=== PATIENT | male | born 1990 | race Caucasian/White ===

== ENCOUNTER 2019-09-13 14:03 | Observation (INO) ==
[2019-09-13] MEDS ORDERED: Isovue-370 500 ML BOTTLE IVP ONE (14:21)
[2019-09-13] MEDS ORDERED: 0.9 % Sodium Chloride 1,000 ML IVC STA (14:33)
[2019-09-13] MEDS ORDERED: Prochlorperazine 10 MG/2 ML VIAL IVP ONE (14:34)
[2019-09-13 14:54] LABS: Basophils # 0.1 K/mcL (0.0-0.2); Basophils % 1.1 %; Eosinophils # 0.1 K/mcL (0.0-0.6); Hematocrit 46.8 % (37.5-50.1); Immature Granulocytes % 0.3 % (0-4); Lymphocytes # 1.2 K/mcL (0.6-4.6); Lymphocytes % 16.8 %; Mean Corpuscular HGB Conc 34.2 g/dL (31.6-35.5); Mean Corpuscular Hemoglobin 27.6 pg (28.0-33.3); Mean Corpuscular Volume 80.7 fL (83.0-100.0); Mean Platelet Volume 10.9 fL (9.4-12.4); Monocytes # 0.6 K/mcL (0.0-1.3); Monocytes % 8.9 %; Platelet Count 264 K/mcL (140-400); Red Cell Distribution Width 12.8 % (11.5-14.5); Segmented Neutrophils % 70.9 %; White Blood Count 7.1 K/mcL (4.3-11.1)
[2019-09-13 14:56] LABS: Prothrombin Time 11.6 Seconds (9.4-12.1)
[2019-09-13 15:13] LABS: Alanine Aminotransferase 32 Units/L (7-52); Albumin 4.7 g/dL (3.5-5.7); Albumin/Globulin Ratio 1.6 (1.1-2.2); Alkaline Phosphatase 85 Units/L (34-104); Aspartate Amino Transferase 22 Units/L (13-39); BUN/Creatinine Ratio 15 (6-26); Bilirubin,Direct 0.2 mg/dL (0.0-0.2); Bilirubin,Indirect 0.6 mg/dL (0.0-1.0); Bilirubin,Total 0.8 mg/dL (0.3-1.0); Blood Urea Nitrogen 12 mg/dL (6-20); Calcium 9.9 mg/dL (8.6-10.3); Carbon Dioxide 23 mEq/L (23-29); Chloride 104 mEq/L (98-107); Globulin 2.9 g/dL (2.4-3.5); Glucose 105 mg/dL (70-105); Osmolality,Calculated 288 (280-300); Potassium 3.3 mEq/L (3.5-5.1); Sodium 139 mEq/L (136-145); Total Protein 7.6 g/dL (6.4-8.9); Troponin I < 0.03 ng/mL (< 0.04); eGFR For African Americans > 60 (> 60); eGFR For Non-African Americans > 60 (> 60)
[2019-09-13] MEDS ORDERED: *HR* FentaNYL (PF) 100 MCG/2 ML VIAL IVP ONE (16:56)
[2019-09-13] MEDS: niCARdipine 20 MG in 0.9 % Sodium Chloride 192 ML IVC SCH ×3 (17:28→22:44)
[2019-09-13 17:31] LABS: Bilirubin,Urine Negative (Negative); Blood,Urine Negative (Negative); Clarity,Urine Cloudy (Clear); Color,Urine Yellow (Yellow); Glucose,Urine (UA) Normal (Normal); Ketones,Urine Negative (Negative); Leukocyte Esterase,Urine Negative (Negative); Nitrite,Urine Negative (Negative); PH,Urine 7.5 pH Units (5.0-8.0); Protein,Urine Negative (Neg-Trace); Specific Gravity,Urine 1.023 (1.010-1.025); Urobilinogen,Urine Normal (Normal)
[2019-09-13 17:39] LABS: Bacteria,Urine None Seen per hpf (None-Few); Hyaline Casts,Urine None Seen per lpf (None-Few); RBC,Urine 0-3 per hpf (0-3); Squamous Epithelial Cell,Urine None Seen per lpf (None-Few); WBC,Urine 0-3 per hpf (0-3)
[2019-09-13] MEDS ORDERED: Naloxone 0.4 MG/ML INJ IVP PRN (17:43)
[2019-09-13] MEDS ORDERED: *HR* Labetalol 20 MG/4 ML SYRINGE IVP PRN (18:03)
[2019-09-13] MEDS ORDERED: Ondansetron 4 MG/2 ML VIAL IVP PRN (18:12)
[2019-09-13] MEDS ORDERED: *HR* OxyCODONE Immed Rel 5 MG TABLET PO ONE (22:39)
[2019-09-14] MEDS ORDERED: *HR* Promethazine 25 MG/ML VIAL IVP ONE (00:54)
[2019-09-14] MEDS ORDERED: *HR* HYDROmorphone 2 MG TABLET PO ONE (01:17)
[2019-09-14 01:24] LABS: BUN/Creatinine Ratio 15 (6-26); Blood Urea Nitrogen 10 mg/dL (6-20); Calcium 9.5 mg/dL (8.6-10.3); Carbon Dioxide 20 mEq/L (23-29); Chloride 105 mEq/L (98-107); Glucose 120 mg/dL (70-105); Osmolality,Calculated 284 (280-300); Potassium 3.5 mEq/L (3.5-5.1); Sodium 137 mEq/L (136-145); eGFR For African Americans > 60 (> 60); eGFR For Non-African Americans > 60 (> 60)
[2019-09-14 01:27] LABS: Troponin I 0.04 ng/mL (< 0.04)
[2019-09-14 01:39] LABS: Thyroid Stimulating Hormone 2.423 mcIU/mL (0.340-5.600)
[2019-09-14] MEDS: amLODIPine 5 MG TABLET PO SCH (07:55)
[2019-09-14] MEDS ORDERED: hydrALAZINE 25 MG TABLET PO SCH (09:00)
[2019-09-14] MEDS: niCARdipine 20 MG in 0.9 % Sodium Chloride 192 ML IVC SCH ×4 (10:35→22:28)
[2019-09-14] MEDS: Acetaminophen 325 MG TABLET PO PRN ×3 (12:13→22:42)
[2019-09-14] MEDS: hydroCHLOROthiazide 25 MG TABLET PO SCH (15:30)
[2019-09-14] MEDS: hydrALAZINE 25 MG TABLET PO SCH ×2 (15:30→23:09)
[2019-09-15] MEDS: niCARdipine 20 MG in 0.9 % Sodium Chloride 192 ML IVC SCH ×2 (00:03→01:57)
[2019-09-15 02:14] LABS: BUN/Creatinine Ratio 16 (6-26); Blood Urea Nitrogen 12 mg/dL (6-20); Calcium 9.3 mg/dL (8.6-10.3); Carbon Dioxide 22 mEq/L (23-29); Chloride 102 mEq/L (98-107); Glucose 124 mg/dL (70-105); Osmolality,Calculated 281 (280-300); Potassium 3.2 mEq/L (3.5-5.1); Sodium 135 mEq/L (136-145); eGFR For African Americans > 60 (> 60); eGFR For Non-African Americans > 60 (> 60)
[2019-09-15] MEDS: Acetaminophen 325 MG TABLET PO PRN (04:16)
[2019-09-15] MEDS: amLODIPine 5 MG TABLET PO SCH (07:28)
[2019-09-15] MEDS: hydroCHLOROthiazide 25 MG TABLET PO SCH (07:29)
[2019-09-15] MEDS: hydrALAZINE 25 MG TABLET PO SCH (07:29)
[2019-09-15] MEDS ORDERED: hydroCHLOROthiazide 25 MG TABLET PO ONE (07:53)
[2019-09-15] MEDS ORDERED: hydroCHLOROthiazide 25 MG TABLET PO SCH (09:00)
[2019-09-15 10:31] VITALS: BP 155/103
== END 2019-09-15 11:40 | disposition home or self-care (01) ==
LOC: EMEROOARM 14:03 → 3NENU 14:03 → SUATTDRO 17:45 → 3NENU 18:07
PROVIDERS: ADMIT Internal Medicine; ATTEND Family Medicine

== ENCOUNTER 2020-09-14 15:37 | Observation (INO) ==
[2020-09-14] MEDS ORDERED: Isovue-370 500 ML BOTTLE IVP ONE (16:44)
[2020-09-14] MEDS ORDERED: hydrALAZINE 25 MG TABLET PO ONE (16:49)
[2020-09-14] MEDS ORDERED: *HR* Labetalol 20 MG/4 ML SYRINGE IVP ONE (16:49)
[2020-09-14] MEDS ORDERED: hydroCHLOROthiazide 25 MG TABLET PO ONE (16:50)
[2020-09-14] MEDS ORDERED: amLODIPine 5 MG TABLET PO ONE (16:50)
[2020-09-14 17:49] LABS: Basophils # 0.1 K/mcL (0.0-0.2); Basophils % 1.4 %; Eosinophils # 0.1 K/mcL (0.0-0.6); Eosinophils % 1.3 %; Hematocrit 47.6 % (37.5-50.1); Immature Granulocytes % 0.5 % (0-4); Lymphocytes # 1.4 K/mcL (0.6-4.6); Lymphocytes % 16.8 %; Mean Corpuscular HGB Conc 33.6 g/dL (31.6-35.5); Mean Corpuscular Hemoglobin 27.9 pg (28.0-33.3); Mean Corpuscular Volume 83.1 fL (83.0-100.0); Mean Platelet Volume 10.9 fL (9.4-12.4); Monocytes # 0.7 K/mcL (0.0-1.3); Monocytes % 8.5 %; Platelet Count 280 K/mcL (140-400); Red Blood Count 5.73 M/mcL (4.19-5.50); Red Cell Distribution Width 13.2 % (11.5-14.5); Segmented Neutrophils % 71.5 %; White Blood Count 8.3 K/mcL (4.3-11.1)
[2020-09-14 17:58] LABS: Prothrombin Time 12.1 Seconds (9.4-12.1)
[2020-09-14 18:19] LABS: Alanine Aminotransferase 39 Units/L (7-52); Albumin 4.8 g/dL (3.5-5.7); Albumin/Globulin Ratio 1.5 (1.1-2.2); Alkaline Phosphatase 77 Units/L (34-104); Aspartate Amino Transferase 24 Units/L (13-39); BUN/Creatinine Ratio 15 (6-26); Bilirubin,Direct 0.1 mg/dL (0.0-0.2); Bilirubin,Indirect 0.5 mg/dL (0.0-1.0); Bilirubin,Total 0.6 mg/dL (0.3-1.0); Blood Urea Nitrogen 12 mg/dL (6-20); Calcium 9.7 mg/dL (8.6-10.3); Carbon Dioxide 23 mEq/L (23-29); Chloride 105 mEq/L (98-107); Globulin 3.1 g/dL (2.4-3.5); Glucose 110 mg/dL (70-105); Osmolality,Calculated 288 (280-300); Potassium 3.6 mEq/L (3.5-5.1); Sodium 139 mEq/L (136-145); Total Protein 7.9 g/dL (6.4-8.9); eGFR For African Americans > 60 (> 60); eGFR For Non-African Americans > 60 (> 60)
[2020-09-14] MEDS: niCARdipine 20 MG/200 ML MLS IVC SCH ×2 (19:24→23:58)
[2020-09-14] MEDS ORDERED: Ondansetron 4 MG/2 ML VIAL IVP PRN (19:55)
[2020-09-14] MEDS ORDERED: Naloxone 0.4 MG/ML INJ IVP PRN (19:55)
[2020-09-14] MEDS ORDERED: Perflutren Lipid Microsphere 1.3 ML in 0.9 % Sodium Chloride 8.7 ML IVP PRN (20:51)
[2020-09-14 21:48] LABS: Bilirubin,Urine Negative (Negative); Blood,Urine Negative (Negative); Clarity,Urine Clear (Clear); Color,Urine Colorless (Yellow); Glucose,Urine (UA) Normal (Normal); Ketones,Urine Negative (Negative); Leukocyte Esterase,Urine Negative (Negative); Nitrite,Urine Negative (Negative); Protein,Urine Trace mg/dL (Neg-Trace); Specific Gravity,Urine 1.029 (1.010-1.025); Urobilinogen,Urine Normal (Normal)
[2020-09-14 21:58] LABS: Amphetamine Screen,Urine Negative ng/mL (Cutoff=1000); Barbiturate Screen,Urine Negative ng/mL (Cutoff=200); Benzodiazepines Screen,Urine Negative ng/mL (Cutoff=200); Cannabinoid Screen,Urine Negative ng/mL (Cutoff = 50); Cocaine Screen,Urine Negative ng/mL (Cutoff= 300); Opiate Screen,Urine Negative ng/mL (Cutoff=300); Phencyclidine Screen,Urine Negative ng/mL (Cutoff=25)
[2020-09-14] MEDS ORDERED: niCARdipine 20 MG/200 ML MLS IVC ONE (22:05)
[2020-09-14] MEDS: Acetaminophen 325 MG TABLET PO PRN (22:26)
[2020-09-15 01:51] LABS: Basophils # 0.1 K/mcL (0.0-0.2); Basophils % 0.9 %; Eosinophils # 0.1 K/mcL (0.0-0.6); Eosinophils % 0.6 %; Hematocrit 46.6 % (37.5-50.1); Hemoglobin 15.4 g/dL (12.9-16.9); Immature Granulocytes % 0.5 % (0-4); Lymphocytes # 1.8 K/mcL (0.6-4.6); Lymphocytes % 14.3 %; Mean Corpuscular Hemoglobin 27.1 pg (28.0-33.3); Mean Platelet Volume 10.8 fL (9.4-12.4); Monocytes % 7.6 %; Neutrophils # 9.7 K/mcL (1.6-8.9); Platelet Count 323 K/mcL (140-400); Red Blood Count 5.68 M/mcL (4.19-5.50); Red Cell Distribution Width 13.2 % (11.5-14.5); Segmented Neutrophils % 76.1 %
[2020-09-15 01:55] LABS: INR 1.1
[2020-09-15] MEDS: niCARdipine 20 MG/200 ML MLS IVC SCH ×2 (01:55→04:45)
[2020-09-15 01:56] LABS: Estimated Average Glucose 117 mg/dl; Hemoglobin A1C 5.7 %
[2020-09-15 02:04] LABS: White Blood Count 12.8 K/mcL (4.3-11.1)
[2020-09-15 02:15] LABS: BUN/Creatinine Ratio 16 (6-26); Blood Urea Nitrogen 12 mg/dL (6-20); Calcium 9.5 mg/dL (8.6-10.3); Carbon Dioxide 23 mEq/L (23-29); Chloride 101 mEq/L (98-107); Glucose 125 mg/dL (70-105); Magnesium 2.1 mg/dL (1.6-2.6); Osmolality,Calculated 281 (280-300); Phosphorous 2.7 mg/dL (2.7-4.5); Potassium 3.3 mEq/L (3.5-5.1); Sodium 135 mEq/L (136-145); eGFR For African Americans > 60 (> 60); eGFR For Non-African Americans > 60 (> 60)
[2020-09-15 02:22] LABS: Thyroid Stimulating Hormone 1.079 mcIU/mL (0.340-5.600)
[2020-09-15] MEDS ORDERED: Ketorolac 30 MG/ML VIAL IVP ONE (02:30)
[2020-09-15] MEDS: Acetaminophen 325 MG TABLET PO PRN (08:40)
[2020-09-15] MEDS ORDERED: amLODIPine 5 MG TABLET PO SCH (09:00)
[2020-09-15] MEDS ORDERED: hydrALAZINE 25 MG TABLET PO SCH (09:00)
[2020-09-15] MEDS ORDERED: lisinopriL 20 MG TABLET PO SCH (09:00)
[2020-09-15 10:53] VITALS: BP 148/104
== END 2020-09-15 11:45 | disposition home or self-care (01) ==
LOC: EMEROOARM 15:37 → 2NNU 15:37 → SUATTDRO 22:40 → 2NNU 23:18
PROVIDERS: ADMIT Student in an Organized Health Care Education/Training Program; ATTEND Student in an Organized Health Care Education/Training Program